=== PATIENT | female | born 1950 | race Two or more races ===

== ENCOUNTER 2018-11-22 08:06 | Outpatient (CLI) | payer OTHER | END 2018-11-22 08:11 | disposition home or self-care (01) | LOC: SONOGRAMA 08:06 | DX: E04.2 Nontoxic multinodular goiter (principal) ==

== ENCOUNTER 2021-07-08 10:04 | Outpatient (CLI) | payer OTHER | END 2021-07-08 10:09 | disposition home or self-care (01) | LOC: SONOGRAMA 10:04 | PROVIDERS: ATTEND Pathology Anatomic Pathology & Clinical Pathology | DX: E04.2 Nontoxic multinodular goiter (principal) ==

== ENCOUNTER 2021-12-30 10:44 | Outpatient (CLI) | payer OTHER | END 2021-12-30 10:59 | disposition home or self-care (01) | LOC: MRI 10:44 | PROVIDERS: ATTEND Surgery | DX: K43.0 Incisional hernia with obstruction, without gangrene (principal) | CPT/HCPCS: 72197; Q9965; 72196 ==

== ENCOUNTER 2022-12-30 08:40 | Outpatient (CLI) | payer OTHER | END 2022-12-30 08:44 | disposition home or self-care (01) | LOC: MAMO-SONO 08:40 | PROVIDERS: ATTEND General Practice | DX: R10.11 Right upper quadrant pain (principal); R10.31 Right lower quadrant pain; R10.13 Epigastric pain; Z12.31 Encounter for screening mammogram for malignant neoplasm of breast ==

== ENCOUNTER → 2022-12-30 | Emergency (ER) | payer OTHER ==
[~2022-12-30] VITALS: Ht 167.6 cm; Wt 81.6 kg
== END | disposition left against medical advice (07) ==
LOC: ER 11:04
DX: Z53.21 Procedure and treatment not carried out due to patient leaving prior to being seen by health care provider (principal)